=== PATIENT | male | born 1955 | race Caucasian/White ===

== ENCOUNTER 2018-09-01 19:15 | Emergency (ER) | payer OTHER ==
[2018-09-01 19:23] VITALS: BP 153/86; PULSE 97; RESP 20; TEMP 98
--- NOTE | 2018-09-01 21:02 | XR ---
EXAMINATION TYPE: XR humerus LT DATE OF EXAM: 09/01/2018 COMPARISON: NONE HISTORY: Swelling. Pain. TECHNIQUE: 4 views FINDINGS: I see no fracture nor dislocation. Joint spaces are normal. The soft tissues are enlarged o vladimir the proximal lateral aspect of the humerus. IMPRESSION: Soft tissue swelling laterally over the proximal humerus could be hematoma. No fracture s een.
--- NOTE | 2018-09-01 21:43 | ED ---
General Adult HPI - General Chief complaint: Skin/Abscess/Foreign Body Stated complaint: Medication reaction Time Seen by Provider: 09/01/18 19:38 Source: patient, RN notes reviewed, old records reviewed Mode of arrival: ambulatory Limitations: no limitations - History of Present Illness Initial comments: 62-year-old male patient with past medical history of diabetes, mylodysplasia syndrome, s/p bone marrow transplant presents with some localized swelling at injection site of pneumococcal 23 vaccination received approximately 8 hours ago in left deltoid. Patient reports that he noticed superficial swelling in left deltoid approximately 2 hours after injection, patient reports some local inflammation, some warmth. Patient denies any other complaints. Patient denies any rash. Patient denies any facial swelling, abdominal pain, nausea vomiting diarrhea, chest pain, shortness of breath, any other complaints. Systemic: Pt denies fatigue, myalgia, fever/chills. Pt denies weakness, night sweats, weight loss. Neuro: Pt denies headache, visual disturbances, syncope or pre-syncope. HEENT: Pt denies ocular discharge or irritation, otalgia, rhinorrhea, pharyngitis or notable lymphadenopathy. Cardiopulmonary: Pt denies chest pain, SOB, heart palpitations, dyspnea on exertion. Abdominal/GI: Pt denies abdominal pain, n/v/d. : Pt denies dysuria, burning w/ urination, frequency/urgency. Denies new onset urinary or bowel incontinence. MSK: Pt denies myalgia, loss of strength or function in extremities. Neuro: Pt denies new onset weakness, paresthesias. - Related Data Home Medications Medication Instructions Recorded Confirmed Acyclovir [Zovirax] 800 mg PO BID 09/01/18 09/01/18 Aspirin 81 mg PO DAILY 09/01/18 09/01/18 Atorvastatin Calcium [Lipitor] 40 mg PO 09/01/18 Insulin Aspart [NovoLOG] 0 units SQ ACHS 09/01/18 09/01/18 Insulin Degludec [Tresiba] 0 units SQ 09/01/18 Magnesium 09/01/18 Metoprolol Tartrate [Lopressor] 50 mg PO BID 09/01/18 09/01/18 Tacrolimus [Prograf] 1 mg PO Q12H 09/01/18 09/01/18 Tamsulosin [Flomax] 0.4 mg PO DAILY 09/01/18 09/01/18 amLODIPine [Norvasc] 2.5 mg PO DAILY 09/01/18 09/01/18 metFORMIN HCL 1,000 mg PO BID 09/01/18 09/01/18 sitaGLIPtin [Januvia] 50 mg PO DAILY 09/01/18 09/01/18 Allergies Allergy/AdvReac Type Severity Reaction Status Date / Time No Known Allergies Allergy Verified 09/01/18 19:23 Review of Systems ROS Statement: Those systems with pertinent positive or pertinent negative responses have been documented in the HPI. ROS Other: All systems not noted in ROS Statement are negative. Past Medical History Past Medical History: Cancer, Diabetes Mellitus Additional Past Medical History / Comment(s): myodysplasia syndrome History of Any Multi-Drug Resistant Organisms: None Reported Past Surgical History: Heart Catheterization With Stent, Orthopedic Surgery Additional Past Surgical History / Comment(s): stem cell transplant Past Psychological History: No Psychological Hx Reported Smoking Status: Former smoker Past Alcohol Use History: None Reported Past Drug Use History: None Reported General Exam - General Exam Comments Initial Comments: Constitutional: NAD, AOX3, Pt has pleasant affect. HEENT: NC/AT, trachea midline, neck supple, no lymphadenopathy. Posterior pharynx non erythematous, without exudates. External ears appear normal, without discharge. Mucous membranes moist. Eyes PERRLA, EOM intact. There is no scleral icterus. No pallor noted. Cardiopulmonary: RRR, no murmurs, rubs or gallops, no JVD noted. Lungs CTAB in anterior and posterior chamberlain. No peripheral edema. Abdominal exam: Abdomen soft and non-distended. Abdomen non-tender to palpation in all 4 quadrants. Bowel sounds active in LLQ. No hepatosplenomegaly. No ecchymosis Neuro: CN II-XII grossly intact. No nuchal rigidity. MSK: [id number] area of inflammation on L deltoid. No erythema, fluctuance. Sensation intact. Radial pulse +2. Full acitve ROM of extremity. No posterior calf tenderness bilaterally, homans sign negative bilaterally. Posterior tibialis and radial pulse +2 bilaterally. Sensation intact in upper and lower extremities. Full active ROM in upper and lower extremities, 5/5 stregnth. Limitations: no limitations Course Vital Signs 09/01/18 19:16 Temperature 98.0 F Pulse Rate 97 Respiratory 20 Rate Blood Pressure 153/86 O2 Sat by Pulse 98 Oximetry Medical Decision Making - Medical Decision Making 62-year-old male patient with past medical history of diabetes, mylodysplasia syndrome, s/p bone marrow transplant presents with some localized swelling at injection site of pneumococcal 23 vaccination received approximately 8 hours ago in left deltoid. Patient reports that he noticed superficial swelling in left deltoid approximately 2 hours after injection, patient reports some local inflammation, some warmth. Patient denies any other complaints. Patient denies any rash. Patient denies any facial swelling, abdominal pain, nausea vomiting diarrhea, chest pain, shortness of breath, any other complaints. Pt VSS , afebrile. Physical exam displayed: [id number] area of inflammation on L deltoid. No erythema, fluctuance. Sensation intact. Radial pulse +2. Full acitve ROM of extremity. No posterior calf tenderness bilaterally, homans sign negative bilaterally. Plain film of humerus displayed soft tissue swelling laterally over approximately humerus. No fracture seen. Swelling decreased significantly during ED stay with ice. Patient diagnosed with local inflammation secondary to injection site. Patient continues ice packs at home and monitor signs or symptoms. Patient to follow with primary care provider in 1-2 days for continued evaluation. Patient to return to ED if symptoms worsen in anyway. Case discussed in depth with Dr. Noland. Disposition Clinical Impression: Localized adverse drug reaction Disposition: HOME SELF-CARE Condition: Stable Instructions (If sedation given, give patient instructions): Pneumococcal Vaccine for Adults (ED), Adverse Drug Reaction (ED) Additional Instructions: Patient to adhere to previously discussed treatment plan and will take medication(s) as directed. Patient to follow up with PCP in 1-2 days. Patient to return to ED if symptoms do not improve. Is patient prescribed a controlled substance at d/c from ED?: No Referrals: Letha Santacruz DO [Primary Care Provider] - 1-2 days Time of Disposition: 21:47
== END 2018-09-01 22:04 | disposition home or self-care (01) ==
LOC: EC 19:15
DX: R22.42 Localized swelling, mass and lump, left lower limb (principal); T50.A95A Adverse effect of other bacterial vaccines, initial encounter; E11.9 Type 2 diabetes mellitus without complications; Z86.2 Personal history of diseases of the blood and blood-forming organs and certain disorders involving the immune mechanism; Z95.5 Presence of coronary angioplasty implant and graft; Z87.891 Personal history of nicotine dependence; Z94.81 Bone marrow transplant status; Z79.82 Long term (current) use of aspirin; Z79.4 Long term (current) use of insulin; Z79.899 Other long term (current) drug therapy
CPT/HCPCS: 99284

== ENCOUNTER → 2023-01-16 | Outpatient (CLI) | payer MEDICARE, OTHER ==
[2023-01-16 22:28] LABS: African American GFR (CKD) 47 (>60 ml/min/1.73 sqM); Anion Gap 14 mmol/L; Blood Urea Nitrogen 29 mg/dL (9-20); Carbon Dioxide 21 mmol/L (22-30); Chloride 103 mmol/L (98-107); Non-African American GFR(CKD) 41 (>60 ml/min/1.73 sqM); Sodium 138 mmol/L (137-145)
[2023-01-17 01:51] LABS: HCT 39.4 % (39.6-50.0); HGB 13.3 d/dL (12.0-15.0); MCH 30.7 pg (27.0-32.0); MCHC 33.8 d/dL (32.0-37.0); Mean Platelet Volume 10.3 FL (9.5-12.2); NRBC Per 100 WBC 0 X 10*3/uL (0.00-0.01); Platelet Count 252 X 10*3/uL (140-440); RBC 4.33 X 10*6/uL (4.40-5.60); RDW 13.8 % (11.5-14.5); WBC 8.29 X 10*3/uL (4.50-10.00)
== END | disposition home or self-care (01) ==
LOC: LABPAT 15:11
PROVIDERS: ATTEND Internal Medicine Interventional Cardiology
DX: Z01.812 Encounter for preprocedural laboratory examination (principal); I25.10 Atherosclerotic heart disease of native coronary artery without angina pectoris
CPT/HCPCS: 80051; 82565; 84520; 85027

== ENCOUNTER → 2024-12-05 | Outpatient (CLI) | payer MEDICARE ==
[2024-12-05 17:02] LABS: ALT 33 U/L (10-49); AST 22 U/L (14-35); Albumin 4.2 g/dL (3.8-4.9); Albumin/Globulin Ratio 1.68 Ratio (1.60-3.17); Alkaline Phosphatase 124 U/L (41-126); BUN/Creat Ratio 16.67 Ratio (12.00-20.00); Carbon Dioxide 20.1 mmol/L (21.6-31.8); Chloride 104 mmol/L (96-109); Chol/HDL Ratio 4.21 Ratio; Globulin 2.5 g/dL (1.6-3.3); Glucose 189 mg/dL (70-110); LDL Cholesterol,Calculated 52.4 mg/dL (0.0-131.0); Potassium 5.1 mmol/L (3.5-5.5); Sodium 138 mmol/L (135-145); Total Bilirubin 0.4 mg/dL (0.3-1.2); Total Protein 6.7 g/dL (6.2-8.2)
== END | disposition home or self-care (01) ==
LOC: LABWHC1 12:24
PROVIDERS: ATTEND Internal Medicine Endocrinology, Diabetes & Metabolism
DX: N40.1 Benign prostatic hyperplasia with lower urinary tract symptoms (principal); E11.65 Type 2 diabetes mellitus with hyperglycemia
CPT/HCPCS: 36415; 80053; 80061; 83036; 84153; 84443

== ENCOUNTER → 2024-12-23 | Outpatient (CLI) | payer MEDICARE ==
--- NOTE | 2024-12-23 14:32 | US ---
EXAMINATION TYPE: US kidneys/renal and bladder DATE OF EXAM: 12/23/2024 COMPARISON: NONE CLINICAL INDICATION: Male, 69 years old with history of N40.1 BENIGN PROSTATIC HYPERPLASIA; Slow urin ation, BPH with LUTS per order. TECHNIQUE: Grayscale imaging of the bilateral kidneys and urinary bladder: FINDINGS: EXAM MEASUREMENTS: Right Kidney: 12.4 x 5.6 x 6.2 cm Left Kidney: 12.7 x 5.3 x 6.0 cm Post Void Residual Volume: 128.76 mL Right Kidney: No hydronephrosis or masses seen Left Kidney: No hydronephrosis or masses seen Bladder: Anechoic Bilateral Jets seen: Yes Normal Post Void Residual: No IMPRESSION: Abnormal post void residual correlates with outlet obstruction related to BPH. [facility], , 12/23/2024 2:30 PM
== END | disposition home or self-care (01) ==
LOC: RADUSWWP 13:47
PROVIDERS: ATTEND Urology
DX: N40.1 Benign prostatic hyperplasia with lower urinary tract symptoms (principal); R93.41 Abnormal radiologic findings on diagnostic imaging of renal pelvis, ureter, or bladder
CPT/HCPCS: 76770